=== PATIENT | male | born 1975 | race Caucasian/White ===

== ENCOUNTER 2022-04-18 02:16 | Emergency (ER) | payer OTHER ==
[~2022-04-18] VITALS: Ht 177.8 cm; Wt 73.5 kg
[~2022-04-18 02:16] MED LIST: (None)15 G1 TOP; AMOX500 PO; Augmentin 875-1 EACH PO; BUSP10; BUSP10 PO; Bactrim Ds Tab1 EACH PO; CEPH500 PO; CRUTCH2 XX; Cyclobenzaprine5 MG PO; HYDACE5 PO; HYDR1TAB94 PO; IBUP600 PO; IBUP800 PO; NAPR500 PO; Naprosyn500 MG PO; Norco 5-325 Ta1 EACH PO; OXYACE5T PO; PENVK500 PO; PROM25 PO; PSEU120ER PO; RXOXYACE PO; SULTRIDS PO; [UNRECOGNIZED DRUG - OTHER]
== END 2022-04-18 08:27 | disposition home or self-care (01) ==
LOC: ER 02:16
DX: F15.929 Other stimulant use, unspecified with intoxication, unspecified (principal); F17.210 Nicotine dependence, cigarettes, uncomplicated
CPT/HCPCS: 99284; A9270